=== PATIENT | male | born 1980 | race Caucasian/White ===

== ENCOUNTER 2024-07-12 11:13 | Emergency (ER) | payer MEDICAID ==
[~2024-07-12] VITALS: Ht 182.9 cm; Wt 109.9 kg
[2024-07-12 12:19] VITALS: BP 182/95
== END 2024-07-12 12:19 | disposition home or self-care (01) ==
LOC: ED 11:13
DX: Z47.89 Encounter for other orthopedic aftercare (principal)
CPT/HCPCS: 99283